=== PATIENT | female | born 1990 | race Two or more races ===

== ENCOUNTER 2022-04-03 11:17 | Emergency (ER) | payer OTHER ==
[~2022-04-03] VITALS: Ht 162.6 cm; Wt 74.8 kg
[2022-04-03] MEDS ORDERED: CARDIZEM30 MG PO (11:45)
== END 2022-04-03 14:59 | disposition home or self-care (01) ==
LOC: ER 11:17
DX: J10.1 Influenza due to other identified influenza virus with other respiratory manifestations (principal); A49.3 Mycoplasma infection, unspecified site; F41.9 Anxiety disorder, unspecified; R06.02 Shortness of breath; R50.9 Fever, unspecified; Z20.822 Contact with and (suspected) exposure to COVID-19